=== PATIENT | female | born 1980 | race Caucasian/White ===

== ENCOUNTER 2017-12-06 20:37 | Emergency (ER) | payer SELFPAY, OTHER ==
[2017-12-06] MEDS: ONDANSETRON (ODT) 4 MG TAB ODT (22:03)
[2017-12-06] MEDS: HYDROmorphONE 2 MG/ML SYG IM (22:03)
[2017-12-07] MEDS: LIDOCAINE 2% VISC 15 ML CUP PO (01:00)
== END 2017-12-07 00:30 | disposition home or self-care (01) ==
LOC: E/R 12-07 00:30
DX: S00.03XA Contusion of scalp, initial encounter (principal); S00.83XA Contusion of other part of head, initial encounter; S10.93XA Contusion of unspecified part of neck, initial encounter; Y04.8XXA Assault by other bodily force, initial encounter
CPT/HCPCS: 70486; 72100; 72125; 81025; 96372; 99285-25

== ENCOUNTER 2018-07-08 19:30 | Emergency (ER) | payer SELFPAY, OTHER | END 2018-07-08 22:59 | disposition left against medical advice (07) | LOC: FTE 19:30 | DX: Z53.21 Procedure and treatment not carried out due to patient leaving prior to being seen by health care provider (principal) ==